=== PATIENT | male | born 1985 | race Caucasian/White ===

== ENCOUNTER 2017-11-19 06:10 | Emergency (ER) | payer MEDICAID, SELFPAY ==
[2017-11-19 06:11] VITALS: BP 153/92; PULSE 42; RESP 17; TEMP 36.4; O2SAT 99; BMI 30.9
--- NOTE | 2017-11-19 06:27 | CT_ITS ---
STUDY: CT ABDOMEN AND PELVIS WITHOUT CONTRAST REASON FOR EXAM: Male, 32 years old. Mid back and right flank pain intermittent times one week. RADIATION DOSAGE (If Supplied By Facility): CTDIvol = ( 14.04 ) mGy, DLP = ( 792.51 ) mGycm TECHNIQUE: Transaxial images were obtained from the dome of the diaphragm to the symphysis pubis without oral contrast, and without intravenous contrast. Sagittal and coronal images were reconstructed. Individualized dose optimization techniques were used for this CT. COMPARISON: None. FINDINGS: The visualized lung bases are unremarkable. The visualized portions of the heart are within normal limits. Normal liver. Normal gallbladder and extrahepatic biliary system. Normal spleen. Normal pancreas. Normal bilateral adrenal glands. Bilateral anterior rotation of the renal pelvis series. The right kidney demonstrated mild hydronephrosis with perirenal stranding, stranding along the collecting system, with a right UPJ calculus of 0.3 to 0.4 cm. The remainder of the right ureter is decompressed. There are 3 nonobstructing right renal calculi. Normal visualized stomach. Normal small intestine. Normal colon. The appendix is visualized and appears normal. Image [id number] series 2. Normal abdominal aorta. Normal inferior vena cava. Normal retroperitoneum. Decompressed urinary bladder. Normal visualized prostate gland. There is a small umbilical and left inguinal hernia containing fat. Normal osseous structures. CT/Abdomen/Pelvis without Cont IMPRESSION: Small right UPJ calculus with mild hydronephrosis, nonobstructing right renal calculi. 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 Other nonacute findings as outlined above. Electronically Signed: Kianna Lynne MD at 7:24 EST , Service support ,
--- NOTE | 2017-11-19 06:27 | EKG12_ITS ---
Test Reason : BACK PAIN Blood Pressure : / mmHG Vent. Rate : 043 BPM Atrial Rate : 043 BPM P-R Int : 140 ms QRS Dur : 100 ms QT Int : 432 ms P-R-T Axes : -16 065 056 degrees QTc Int : 365 ms Marked sinus bradycardia with marked sinus arrhythmia Abnormal ECG Confirmed by NICHOLE BAÑUELOS, DEMAR ([id number]), design editor ROBERT PASCAL ([id number] on 11/25/2017 2:58:46 PM Referred By: ARTIE Confirmed By:DEMAR VARELA MD
[2017-11-19 06:33] LABS: Bacteria 0 SEEN /hpf (None Seen); Mucous, Urine 0 SEEN /hpf (<or=2+); Squamous Epithelial Cells - UA 0 SEEN /hpf (0-5)
[2017-11-19 06:35] LABS: Color, Urine Yellow (Yellow); Glucose, Dipstick Normal (Normal); Ketone-Dipstick Negative (Negative); Leukocyte Esterase-Dipstick 25 /ul (Negative); Nitrite-Dipstick Negative (Negative); Occult Blood-Urine 25 /ul (Negative); Protein-Dipstick 15 mg/dl (Negative); Specific Gravity, Urine 1.015 (1.002-1.030); Urine Bilirubin Dipstick Negative (Negative); Urine Clarity Clear (Clear); Urine Urobilinogen Normal (Normal); Urine pH 6.5 (5.0 - 8.0)
[2017-11-19] MEDS: 0.9% Normal Saline 1,000 ML 250 ML IV (06:36)
[2017-11-19] MEDS: Ketorolac 30 MG/ML Syringe IV (06:37)
[2017-11-19 06:38] VITALS: RESP 17
--- NOTE | 2017-11-19 06:51 | ED.DCSUM_ITS ---
- ER Visit Summary Date of Service: 11/19/17 Chief Complaint: Right-sided flank pain History of Present Illness: The patient is a 32 M presents to the emergency department with right-sided flank pain. The patient symptoms began about 3 days ago. He states woke from sleep with the stabbing sensation in his right flank. He states that he tried icy hot, ice, and warm shower. Seemed to relieve. 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 He states he has never really had pain like this before. The pain was gone for 2 days and then returned again this morning. It actually woke him from sleep. He became acutely nauseated and vomited once from the pain. He denies the pain radiating. He has had no urinary symptoms. He has no history of kidney stone. He denies any history of prior abdominal surgery. Physical Examination: Vital signs reviewed General: Well-nourished, well-developed Head: Normocephalic, atraumatic Eyes: Pupils equal and reactive, extraocular muscles intact Neck, supple, no lymphadenopathy Heart: Regular bradycardia Respiratory: No distress, clear bilaterally Abdomen: Soft, nontender, nondistended, no peritoneal signs Back: Mild right-sided CVA tenderness, no bony tenderness, no rash, no step-off Extremities: Nontender, no edema, no cords Skin: Normal color no rash Neuro: Alert and oriented, no focal or lateralizing deficits Test Results: [] Emergency Department Course and Treatment: The patient's pain is hard to reproduce and I was concerned for stone given the colicky type pain. IV was established. He was given fluids and Toradol with resolution of his pain. His urine does not show evidence of infection. CT does show a mid ureteral 3 mm stone with mild hydro-. On reevaluation again the patient is resting comfortably. I do feel that he is safe for outpatient follow-up. He will be given a short course of analgesics and antiemetics and follow-up with urology. He will return with any worsening symptoms. Treatment Plan: [] Disposition: Discharge Impression: 1. 3 mm right-sided ureteral stone with colic This note was generated with [email or web address] dictation software. It may contain incorrect words, spelling, and punctuation that were not noted in review of the chart prior to signing ED Disposition - Plan for ED Patient: Chief Complaint: Back Instructions: ED Stone Renal W Colic Prescriptions: Hydrocodone Bitart/Apap 5-325 [[place] 5/325] 1 tab PO Q6H PRN PRN 3 Days #12 tab PRN Reason: Pain Ondansetron [Zofran Odt] 4 mg PO Q8H PRN PRN #10 tab PRN Reason: Nausea Referrals: Care Physician,No Primary [Primary Care Provider] -
[2017-11-19 06:53] LABS: Red Blood Cells-Urine 5-10 SEEN /hpf (0-5); White Blood Cells 0-5 SEEN /hpf (0-5)
[2017-11-19 07:44] VITALS: BP 134/75; PULSE 81; RESP 22; O2SAT 100
--- NOTE | 2017-11-19 07:45 | ED.RN ---
THIS NURSE REVIEWED D/C INSTRUCTIONS WITH PT. PT VERBALIZED UNDERSTANDING OF INSTRUCTIONS. IV D/C. IV CATHETER INTACT. PT TOLERATED WELL. PT DENIES FURTHER NEEDS OR QUESTIONS AT THIS TIME. PT AMBULATES FROM ROOM ON OWN WITHOUT ASSISTANCE FROM STAFF
== END 2017-11-19 07:46 | disposition home or self-care (01) ==
PROVIDERS: Emergency Provider Emergency Medicine
DX: N13.2 Hydronephrosis with renal and ureteral calculous obstruction (principal)
CPT/HCPCS: 74176; 81001; 93005; 96361; 96374; 99284; J7030; A4216

== ENCOUNTER 2018-04-11 07:12 | Emergency (ER) | payer MEDICAID, SELFPAY ==
[2018-04-11 07:13] VITALS: BP 148/100; PULSE 54; RESP 16; TEMP 36.5; O2SAT 99; BMI 29.8
--- NOTE | 2018-04-11 07:24 | RAD_ITS ---
STUDY: X-RAY - LEFT WRIST REASON FOR EXAM: Male, 32 years old. Left wrist pain. TECHNIQUE: 3 view(s) of the wrist were obtained. COMPARISON: None. FINDINGS: There is periarticular mild demineralization of the radius and ulna. Normal radiocarpal articulation. Normal distal radioulnar articulation. There is mild demineralization of the carpal bones. Normal carpal articulations. Normal carpometacarpal articulation of the thumb. Normal second through fifth carpometacarpal articulations. Unremarkable visualized metacarpal bones. The soft tissue structures are unremarkable. There is no demonstrated acute fracture. RAD/Wrist min 3 Views IMPRESSION: 1. No demonstrated fracture, bony destruction or dislocation. 2. Periarticular mild bony demineralization. Electronically Signed: Justino Ruiz MD at 7:43 EDT Tel , Service support ,
--- NOTE | 2018-04-11 07:32 | ED.DCSUM_ITS ---
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 He states that on Friday he began to have some painful range of motion of the left wrist. He then developed some mild swelling on the dorsal radial aspect. He states he has been trying to rest it and ice it but it continues to hurt. No known trauma. Physical Examination: Afebrile vital signs are stable Patient has swelling and tenderness along the extensor carpi radialis tendons. He has painful supination and pronation. He has painful flexion and extension against resistance. There is a positive Spencer's test. there is a small ganglion cyst along the flexor carpi radialis muscle tendon. Neurovascularly intact Test Results: Wrist films were negative Emergency Department Course and Treatment: This could be de Quervain's tenosynovitis. This could also be simple tendinitis of extensor tendons. Patient will wear a cock-up splint. Continued ice and anti-inflammatories. Follow-up with orthopedics if not improving Impression: 1. Left wrist tendinitis This note was generated with [employer] dictation software. It may contain incorrect words, spelling, and punctuation that were not noted in review of the chart prior to signing ED Disposition - Plan for ED Patient: Disposition: Home or Assisted Living Chief Complaint: Upper Extremity Injury Diagnosis: Left wrist tendonitis Instructions: What Is De Quervain Tenosynovitis? Prescriptions: Naproxen [Naprosyn] 500 mg PO BID PRN #20 tab Referrals: Rubén Temple DO [STAFF PHYSICIAN] - 10-14 Days if not better
== END 2018-04-11 07:48 | disposition home or self-care (01) ==
PROVIDERS: Emergency Provider Emergency Medicine
DX: M77.9 Enthesopathy, unspecified (principal)
CPT/HCPCS: 73110; 99283

== ENCOUNTER 2019-08-20 22:44 | Emergency (ER) | payer SELFPAY ==
[2019-08-20 22:45] VITALS: BP 152/84; PULSE 59; RESP 16; TEMP 36.7; O2SAT 100; BMI 29.1
--- NOTE | 2019-08-20 23:13 | ED.VIS.DENTA ---
History of Present Illness Chief Complaint: Dental Informant: Patient Onset: Days - 3-4 Context: Gradual Onset Timing: Continuous Quality: ache Location: right mandibular molar Current Severity: Severe Maximum Severity: Severe Worsened by: eating Relieved by: NSAIDs - minimally Associated Symptoms: - - No fever, swallowing, drainage/bleeding Narrative: Spontaneous onset dental pain right mandibular molar. No injury. States having trouble sleeping due to the pain. Taking Advil but not helping very much. Starting to radiate into his right ear. Past Medical History - Allergies and Home Meds Allergies/Adverse Reactions: Allergies No Known Allergies Allergy (Verified 08/20/19 22:47) Primary Care Physician: Care Physician,No Primary [Primary Care Provider] - Past Medical History: None Surgical History: no surgical history Lives: With Family Smoking Status: Never smoker Review of Systems General: Denies: Chills, Fever, Sweats Eyes: Denies: Visual changes - bilaterally, Diplopia ENT: Reports: Right ear pain, - - toothache. Denies: Rhinorrhea, Sore throat Cardiovascular: Denies: Chest pain, Palpitations Respiratory: Denies: Dyspnea, Cough Musculoskeletal: Denies: Neck pain, Back pain Skin: Denies: Rash, Wounds Neurological: Denies: Headache, Weakness Physical Exam Vital Signs/Narrative: Vital Signs Temp Pulse Resp BP Pulse Ox 08/20/19 22:45 98.1 F 59 L 16 152/84 H 100 Inital Vital Signs reviewed: Yes General: Well nourished, Well developed, - - NAD Head: Normocephalic, Atraumatic ENT: Moist mucous membranes, No rhinorrhea, TM's clear. Negative for: Sinus tenderness Mouth/Throat: Normal inspection lips/gums, Normal oral mucosa, No focal abscess, Normal posterior oropharynx, No sublingual edema, Normal Stensen's duct, Dental trauma - right mandib 3rd molar, #32 crooked/erupted abnormally; no gingival abn/inflammation/bleeding, no purulent d/c. Negative for: Trismus Neck: Supple, No lymphadenopathy, Nontender, No JVD Respiratory: No distress Neurological: Alert, Oriented x3, Cranial nerves II-XII grossly intact, Normal Strength, Normal Sensation, Normal Gait Psychological: Normal affect, Normal Mood Diagnostic/Tx/Re-eval - Medical Decision Making Patient appears to have an abnormally erupted third molar which is likely related to his pain, however the other third molars appear normal and are nontender. This is probably not a new issue, however since his pain is new I will prescribe him antibiotics to prevent abscess in case there is a dental infection. He is advised to follow-up with a dentist soon as possible which she was already trying to do. His oarrs report is negative, given a prescription for [place]. ED Disposition - Plan for ED Patient: Disposition: Home or Assisted Living Diagnosis: Odontalgia Instructions: Dental Pain Prescriptions: Amoxicillin 500 mg PO TID #30 tab Prescription Printed Hydrocodone Bitart/Apap 5-325 [[place] 5MG-325MG] 1 - 2 tab PO . Q4-6H PRN 2 Days #15 tab PRN Reason: Pain Prescription Printed Referrals: Dentist,Your [STAFF PHYSICIAN] - As soon as possible (see attached list if needed)
[2019-08-20] MEDS: AMOXICILLIN 500 MG CAPSULE PO (23:17)
[2019-08-20] MEDS: HYDROcodone Bitartrate/Apap 5/325 Tablet PO (23:17)
[2019-08-20 23:25] VITALS: PULSE 89; RESP 18; O2SAT 99
--- NOTE | 2019-08-20 23:25 | ED.RN ---
THIS NURSE REVIEWED D/C INSTRUCTIONS WITH PT. PT VERBALIZED UNDERSTANDING OF INSTRUCTIONS. PT DENIES FURTHER NEEDS OR QUESTIONS AT THIS TIME. PT WAITING FOR PRESCRIPTIONS TO BE FILLED IN THE ROOM
== END 2019-08-20 23:26 | disposition home or self-care (01) ==
LOC: ED 23:16
PROVIDERS: Emergency Provider Emergency Medicine
DX: K08.89 Other specified disorders of teeth and supporting structures (principal)
CPT/HCPCS: 99283

== ENCOUNTER 2023-05-29 09:14 | Emergency (ER) | payer OTHER, SELFPAY ==
[2023-05-29 09:15] VITALS: BP 136/83; PULSE 72; RESP 14; TEMP 36.3; O2SAT 98; BMI 24.4
--- NOTE | 2023-05-29 09:59 | EDS_ITS ---
HPI History of Present Illness Chief Complaint: Eye Problem Detail of Chief Complaint: Eye swelling and watering. Informant: patient and spouse/S.O. Onset/Context/Timing Location: Right Eye Onset: Today Context: Gradual Onset Timing: Continuous Current Severity: Mild Maximum Severity: Mild Associated Symptoms Associated Symptoms - Eyes: Eyelid swelling; Negative for Burning, Crusting, Drainage, Matting, Photophobia or Redness History of injury: No Visual correction: Glasses Narrative Narrative: 37-year-old male no stated past medical history does wear glasses no contacts. 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 When he woke up this morning his right eye was swollen closed its much improved. He is having increased watering. No visual change. Mild discomfort. No discharge. Prior similar symptoms: No Recent Illness/Hospitalization: No PFSH PFSH Medical History no medical history no medical history Home Medications amoxicillin 500 mg tablet 500 mg PO TID #30 tabs 08/20/19 [Rx Last Taken Unknown] Allergy/AdvReac Type Severity Reaction Status Date / Time No Known Allergies Allergy Verified 05/29/23 09:17 Social History Smoking Status: Never smoker ROS ROS ED ROS Narrative Denies. Review of Systems ROS Unobtainable: Denies due to encephalopathy Constitutional Constitutional ED: Denies chills or fever(s) Eyes Eyes: Denies blurry vision, change in vision or diplopia ENT ENT ED: Denies ear pain Cardiovascular Cardiovascular: Denies chest pain Respiratory/Chest Respiratory/Chest: Denies cough or dyspnea Gastrointestinal Gastrointestinal: Denies abdominal pain Genitourinary Genitourinary ED: Denies dysuria Musculoskeletal Musculoskeletal: Denies arthralgias Integumentary Denies abscess Neurologic Neurologic: Denies headache(s) Psychiatric Psychiatric: Denies anxiety or depression Endocrine Endocrinology: Denies polydipsia Hematologic/Lymphatic Hematologic/Lymphatic: Denies easy bleeding or easy bruising Allergic/Immunologic Allergic/Immunologic ED: Denies mouth swelling, tongue swelling or urticaria EXAM Physical Exam Narrative Exam Narrative: 7-year-old male vital signs stable afebrile. HEENT exam right eye is injected. The upper lid is mildly swollen. When you invert the upper lid there may be a stye at the midportion about half a centimeter back from the eyelid border. No discharge. Increased watering. Injected. No foreign body. No abrasion noted. No ulceration. Extraocular motions are intact. Able to open close his eyes only difficulty. No periorbital edema. No cellulitis. No preauricular lymphadenopathy. Left eye is unremarkable. Heart lung abdominal exam unremarkable. Const Vital Signs: 05/29/23 09:15 Temperature 97.4 F L Temperature Source Temporal Pulse Rate 72 Respiratory Rate 14 Blood Pressure 136/83 H Blood Pressure Mean 100 Pulse Ox 98 Oxygen Delivery Method Room Air Positive well nourished and well developed; Negative for cachectic, contractures or unkempt General Appearance ED: well developed; Negative for unkempt, cachectic or contractures Nutritional Appearance: Negative for cachectic HEENT Denies other HEENT Narrative: Watering. Right upper lid mildly swollen. Possible early stye midportion of t he right upper eyelid about half a centimeter back from the lid border. Foreign body or abrasion noted. atraumatic; Negative for trauma, tenderness or other Nose: external nose normal and nares normal Neck no lymphadenopathy, supple and no JVD General: Negative for tenderness Resp normal respiratory effort, no retractions, no use of accessory muscles and clear to auscultation bilaterally Cardio regular rate, regular rhythm, S1 normal heart sound, S2 normal heart sound and no murmurs GI non-tender, non-distended and no masses Inspection: Negative for other Auscultation: normoactive bowel sounds Palpation: soft Back/Spine no CVA tenderness General Back: Negative for CVA tenderness Extremity normal to inspection General Extremety ED: Negative for edema or other findings General Extremity: Negative for edema or other findings Neuro oriented x3, CN's II-XII intact bilaterally and moves all extremities Sensorium / Orientation: alert, oriented to person, oriented to place and oriented to time; Negative for orientation impaired Motor Exam: strength 5/5 throughout Psych Appearance: Negative for unkempt Attitude: No agitated Mood & Affect: Negative for depressed, anxious or tearful Skin no wounds Lesions: no lesions Rashes: no rashes Trauma: Negative for abrasion or laceration MDM MDM MDM Narrative Medical decision making narrative: Patient with right upper eyelid mild swelling. Possible stye. Slit-lamp exam will be done along with tetracaine and fluorescein. [place] of the right eye was performed with fluorescein stain. There was watering and injected. No signs of infection. No discharge. No foreign body. No corneal abrasion. Everted the upper lid and appears to be a stye. As I previously stated. There is no signs of any type of ulceration or infection. History & Record Review Discussion w/independent historian: Patient and Family Discharge Plan Triage Chief Complaint: Eye Problem ED Provider: Daniel Crow Dx/Rx/DC Orders Clinical Impression: Stye Instructions: ED Sty Prescriptions: No Action amoxicillin 500 MG tablet 500 mg PO TID Qty: 30 0RF Primary Care Provider: Care Physician,No Primary Referrals: Zhou Vital MD [Med Staff - Active Staff] - 1 Week if not improving Care Physician,No Primary [Primary Care Provider] - Activity Restrictions/Additional Instructions: Return and/or Tylenol for pain. Leave this is secondary to a stye on the midportion of your right eyelid. Warm compresses for 30 minutes at a time for 5 times a day till gone. This should progressively improve. It may get worse initially until the stye goes away or ruptures. If is not getting better or getting worse continuously needs further evaluation by the eye doctor. I do not see any foreign body or signs of infection at this time. There is no signs of any trauma. Disposition Disposition: Home, Self Care
[2023-05-29] MEDS: Fluorescein 1 MG STRIP 1 STRIP OPHTHALMIC (10:10)
[2023-05-29] MEDS: Tetracaine 0.5% Ophthalmic Bottle 1 DRP RIGHT EYE (10:10)
== END 2023-05-29 11:35 | disposition home or self-care (01) ==
PROVIDERS: Emergency Provider Emergency Medicine; Visit Provider Emergency Medicine
DX: H00.011 Hordeolum externum right upper eyelid (principal)
CPT/HCPCS: 99283

== ENCOUNTER 2025-03-27 15:26 | Emergency (ER) | payer SELFPAY ==
[2025-03-27 15:27] VITALS: BP 152/84; PULSE 108; RESP 18; TEMP 39.3; O2SAT 98; BMI 31.9
[2025-03-27] MEDS: Cefazolin 1 GM/5 ML Vial IM (16:24)
[2025-03-27 16:36] VITALS: BP 148/66; PULSE 94; RESP 18; TEMP 38.7; O2SAT 99
== END 2025-03-27 16:36 | disposition home or self-care (01) ==
LOC: ED 15:59
PROVIDERS: Emergency Provider Emergency Medicine; Visit Provider Emergency Medicine
DX: L03.114 Cellulitis of left upper limb (principal)
CPT/HCPCS: 96372; 99282

== ENCOUNTER 2025-04-18 16:22 | Emergency (ER) | payer SELFPAY ==
[2025-04-18 16:22] VITALS: BP 138/86; PULSE 88; RESP 16; TEMP 36.7; O2SAT 97; BMI 31.8
--- NOTE | 2025-04-18 16:40 | EDS_ITS ---
HPI History of Present Illness Chief Complaint: Cellulitis Informant: patient Narrative Narrative: Sent in from dermatology for evaluation recurrent redness around his shoulder and arm. Started before the weekend. He was seen 3 weeks ago sudden burning cellulitis treated Bactrim and Keflex he states he took a 10-day course however did not take the nighttime dose of Keflex. Redness almost resolved. He states Friday started to return. Is not diabetic. States he had pain with movement of his shoulder on the lateral deltoid. 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 There is no injuries or break in skin. He states he had a fever sensation Friday that resolved. He had 8 tabs of Keflex after which he took. He states pain in his shoulder is improved redness is improving also. He went to dermatology where his spouse works, was sent here for evaluation. He states he does work in the sun with his work, there is been no hu. He does not take off his shirt. Prior similar symptoms: Yes PFSH PFSH Home Medications ?Medication ?Instructions ?Recorded ?Last Taken ?Type NK 04/18/25 Unknown History cephalexin 500 mg capsule 500 mg PO Q6 #28 CAPSULES Unknown Rx Allergy/AdvReac Type Severity Reaction Status Date / Time No Known Allergies Allergy Verified 04/18/25 16:25 Social History Smoking Status: Never smoker ROS ROS ED Constitutional Constitutional ED: Denies fever(s) Cardiovascular Cardiovascular: Denies chest pain Respiratory/Chest Respiratory/Chest: Denies cough Gastrointestinal Gastrointestinal: Denies diarrhea or vomiting Musculoskeletal Musculoskeletal: Denies none Integumentary Reports rash; Denies wounds Neurologic Neurologic: Denies weakness EXAM Physical Exam Const Vital Signs: 04/18/25 16:22 04/18/25 18:04 Temperature 98.1 F 98 F Temperature Source Oral Pulse Rate 88 50 L Respiratory Rate 16 12 Blood Pressure 138/86 H 139/79 H Blood Pressure Mean 103 99 Pulse Ox 97 100 Oxygen Delivery Method Room Air Positive well nourished and well developed General Appearance ED: well developed HEENT normocephalic and atraumatic Eyes General Eye ED: Yes normal appearance of both eyes Neck full ROM Resp normal respiratory effort and normal air movement Cardio regular rate and regular rhythm GI soft to palpation Extremity normal to inspection and full ROM Neuro oriented x3 Skin no wounds Skin Narrative: Neck left upper back redness left lateral trapezius along the scapula. There is no current shoulder involvement. No swelling of the shoulder. No pain with movement. Skin is intact. MDM MDM MDM Narrative Medical decision making narrative: Interventions / MDM: Differential diagnosis: Left shoulder recurrent cellulitis Diagnosis considered but do not suspect: No history of septic joint My EKG interpretation: N/A Imaging independently reviewed and interpreted by myself: N/A External documents reviewed: N/A Test considered but not ordered:N/A ED course: Patient has history of pain redness is starting to improve. He had fever Friday. Took 8 tabs leftover Keflex last dose 2 days ago. No clinical septic joint. With him being referred in by dermatology I will check basic labs. Discussed with his reported fever and partial treatment with improvement will likely continue Keflex as this is improving symptoms. Labs returned normal. Symptoms are improving. I will restart Keflex at this time for total of 7 days. Outpatient follow-up. Re-evaluation: stable Disposition discussed with patient/family/significant other: Patient Case discussed with consulting clinician: N/A This note was generated with [employer] dictation software. It may contain incorrect words, spelling, and punctuation that were not noted in checking the note before signing. Lab Data Attestation: I reviewed the patient's lab results. Labs: Laboratory Results - last 24 hr 04/18/25 16:48 WBC 7.6 RBC 4.84 Hgb 14.4 Hct 42.0 MCV 86.8 MCH 29.8 MCHC 34.3 RDW Std Deviation 40.6 RDW Coeff of Heather 13.0 Plt Count 329 MPV 10.2 Immature Gran % (Auto) 0.400 Neut % (Auto) 71.7 H Lymph % (Auto) 17.3 L [place] % (Auto) 8.3 Eos % (Auto) 1.6 Baso % (Auto) 0.7 Absolute Neuts (auto) 5.5 Absolute Lymphs (auto) 1.32 Nucleated RBC % 0 Sodium 139 Potassium 3.8 Chloride 101 Carbon Dioxide 22.7 Anion Gap 15 BUN 15 Creatinine 1.00 Estim Creat Clear Calc 127.45 Est GFR (MDRD) Non-Af 99 BUN/Creatinine Ratio 15.1 Glucose 157 H Calcium 9.6 Discharge Plan Triage Chief Complaint: Cellulitis ED Provider: Alexi Leonard Dx/Rx/DC Orders Clinical Impression: Cellulitis Prescriptions: New cephalexin 500 mg capsule 500 mg PO Q6 Qty: 28 0RF No Action NK Primary Care Provider: Care Physician,No Primary Referrals: Care Physician,No Primary [Primary Care Provider] - Activity Restrictions/Additional Instructions: White count normal at 7.6. Take and finish antibiotic as prescribed. Follow-up with your doctor. Print Language: Italian Disposition Disposition: Home, Self Care Discharge Date/Time: 04/18/25 18:04
[2025-04-18 17:04] LABS: Hematocrit 42.0 % (40-54); Hemoglobin 14.4 g/dL (13.0-16.5); Immature Granulocytes Count 0.030 X10^3/uL (0.0-0.0); Mean Corp Hgb Conc 34.3 g/dL (32-36); Mean Corpuscular Volume 86.8 fL (80-94); Mean Platelet Vol. 10.2 fl (6.2-12.0); NRBC Flagged by Analyzer 0 % (0-5); Platelet Count 329 K/mm3 (150-450); RBC Distribution Width CV 13.0 % (11.6-14.6); RBC Distribution Width SD 40.6 fl (35.1-43.9); Red Blood Count 4.84 M/mm3 (4.6-6.2); White Blood Count 7.6 K/mm3 (4.4-11.0)
[2025-04-18 17:52] LABS: Anion Gap 15 (5-15); BUN 15 mg/dL (4-19); BUN/Creat Ratio 15.1 RATIO (10-20); Calcium,Total 9.6 mg/dL (7.6-11.0); Carbon Dioxide 22.7 mmol/L (21.0-32.0); Chloride 101 mmol/L (98-108); Estimated Creatinine Clearance 127.45 ml/min (50-250); Glucose 157 mg/dL (70-99); Potassium 3.8 mmol/L (3.3-5.1)
[2025-04-18 18:04] VITALS: BP 139/79; PULSE 50; RESP 12; TEMP 36.6; O2SAT 100
== END 2025-04-18 18:04 | disposition home or self-care (01) ==
PROVIDERS: Emergency Provider Emergency Medicine; Visit Provider Emergency Medicine
DX: L03.114 Cellulitis of left upper limb (principal)
CPT/HCPCS: 80048; 85025; 99283